=== PATIENT | female | born 1970 | race Caucasian/White ===

== ENCOUNTER 2017-12-12 10:01 | Emergency (ER) | payer SELFPAY ==
[~2017-12-12] VITALS: Ht 177.8 cm; Wt 79.7 kg
[~2017-12-12 10:01] MED LIST: ESTR1TAB7 PO; TOPI200T25 PO
[2017-12-12] MEDS ORDERED: OXYcodone/APAP 5/325MG TABLET PO ONE (10:30)
[2017-12-12] MEDS ORDERED: ONDANSETRON ODT 4 MG PO ONE (10:30)
[2017-12-12 10:39] LABS: BASOPHILS # (AUTO) 0.03 x10^3/uL (0-0.1); BASOPHILS % (AUTO) 1 % (0-1); EOSINOPHILS # (AUTO) 0.16 x10^3/uL (0-0.4); EOSINOPHILS % (AUTO) 3 % (1-7); LYMPHOCYTES # (AUTO) 3.14 x10^3/uL (1-3.4); LYMPHOCYTES % (AUTO) 54 % (22-44); MD NO; MEAN CORPUSCULAR HEMOGLOBIN 30.1 pg (27.0-34.8); MEAN CORPUSCULAR HGB CONC 33.9 g/dL (32.4-35.8); MEAN CORPUSCULAR VOLUME 88.8 fL (80-100); MEAN PLATELET VOLUME 7.4 fL (7.4-10.4); MONOCYTES # (AUTO) 0.43 x10^3/uL (0.2-0.8); MONOCYTES % (AUTO) 7 % (2-9); NEUTROPHILS # (AUTO) 2.04 x10^3/uL (1.8-6.8); NEUTROPHILS % (AUTO) 35 % (42-75); PLATELET COUNT 285 x10^3/uL (130-400)
[2017-12-12 10:47] LABS: ALBUMIN 3.9 g/dL (3.4-5.0); ANION GAP 9 mmol/L (5-15); CALCIUM 8.9 mg/dL (8.5-10.1); CHLORIDE 107 mmol/L (98-107)
[2017-12-12 10:52] LABS: ALANINE AMINOTRANSFERASE 32 U/L (12-78); ALKALINE PHOSPHATASE 96 U/L (45-117); BILIRUBIN,TOTAL 0.3 mg/dL (0.2-1.0); CREATININE 0.84 mg/dL (0.55-1.02); TOTAL PROTEIN 7.6 g/dL (6.4-8.2)
[2017-12-12] MEDS ORDERED: OXYcodone/APAP 5/325MG TABLET ONE (11:05)
[2017-12-12] MEDS ORDERED: ONDANSETRON ODT 4 MG ONE (11:05)
[2017-12-12 11:47] LABS: MICROSCOPIC NOT IND
[2017-12-12 11:49] LABS: CULTURE INDICATED? NO
[2017-12-12] MEDS ORDERED: SODIUM CHLORIDE FLUSH 10ML SYR IVF ONE (12:00)
[2017-12-12] MEDS ORDERED: OMNIPAQUE 350 MG/ML, 100ML BOTTLE ONE (12:48)
[2017-12-12 13:38] VITALS: BP 123/95
== END 2017-12-12 13:52 | disposition home or self-care (01) ==
LOC: ED 13:46
DX: R10.32 Left lower quadrant pain (principal); R79.89 Other specified abnormal findings of blood chemistry
CPT/HCPCS: 36415; 74177; 76830; 80053; 81003; 84702; 85025; 99285; Q0162; Q9967

== ENCOUNTER 2018-03-30 07:49 | Emergency (ER) | payer SELFPAY ==
[~2018-03-30] VITALS: Ht 175.3 cm; Wt 84.5 kg
[2018-03-30 07:52] VITALS: BP 143/80
== END 2018-03-30 10:18 | disposition home or self-care (01) ==
LOC: ED 10:14
DX: G89.11 Acute pain due to trauma (principal); M77.9 Enthesopathy, unspecified; X58.XXXA Exposure to other specified factors, initial encounter; Y93.89 Activity, other specified; Y92.89 Other specified places as the place of occurrence of the external cause; Y99.8 Other external cause status
CPT/HCPCS: 99283

== ENCOUNTER 2019-06-21 14:19 | Emergency (ER) | payer SELFPAY ==
[~2019-06-21] VITALS: Ht 177.8 cm; Wt 90.2 kg
[2019-06-21 14:24] VITALS: BP 165/81
--- NOTE | 2019-06-21 15:28 | NUR ---
PT HERE WITH C/O LOWER BACK PAIN S/P BENDING OVER.
[2019-06-21] MEDS ORDERED: METHOCARBAMOL 750 MG TABLET ONE (15:36)
[2019-06-21] MEDS ORDERED: HYDROcodone/APAP 5/325 TABLET ONE (15:37)
[2019-06-21] MEDS ORDERED: HYDROcodone/APAP 5/325 TABLET PO ONE (16:00)
[2019-06-21] MEDS ORDERED: METHOCARBAMOL 750 MG TABLET PO ONE (16:00)
--- NOTE | 2019-06-21 16:17 | NUR ---
Patient/Caregiver given discharge instructions and they have confirmed that they understand the instructions. Patient ambulatory with steady gait.
== END 2019-06-21 16:47 | disposition home or self-care (01) ==
LOC: ED 15:20
DX: M54.5 Low back pain (principal); G89.29 Other chronic pain
CPT/HCPCS: 99283